=== PATIENT | female | born 1980 | race Caucasian/White ===

== ENCOUNTER 2017-11-30 08:47 | Emergency (ER) | payer OTHER ==
[~2017-11-30] VITALS: Ht 170.2 cm; Wt 105.2 kg
[2017-11-30 08:52] VITALS: Ht 170.2 cm; Wt 105.2 kg
[2017-11-30 11:17] VITALS: BP 112/77
== END 2017-11-30 11:17 | disposition home or self-care (01) ==
LOC: ED 08:47
DX: S83.91XA Sprain of unspecified site of right knee, initial encounter (principal); E11.9 Type 2 diabetes mellitus without complications; Z90.89 Acquired absence of other organs; X50.1XXA Overexertion from prolonged static or awkward postures, initial encounter; Y93.89 Activity, other specified; Y92.89 Other specified places as the place of occurrence of the external cause; Y99.8 Other external cause status

== ENCOUNTER 2017-12-06 18:20 | Emergency (ER) | payer OTHER ==
[~2017-12-06] VITALS: Ht 167.6 cm; Wt 104.3 kg
[2017-12-06 18:46] VITALS: Ht 167.6 cm; Wt 104.3 kg
[2017-12-06 22:00] VITALS: BP 128/95
== END 2017-12-06 22:00 | disposition home or self-care (01) ==
LOC: ED 18:20
DX: S86.811A Strain of other muscle(s) and tendon(s) at lower leg level, right leg, initial encounter (principal); E11.9 Type 2 diabetes mellitus without complications; Z90.89 Acquired absence of other organs; V00.121A Fall from non-in-line roller-skates, initial encounter; Y93.89 Activity, other specified; Y92.89 Other specified places as the place of occurrence of the external cause; Y99.8 Other external cause status
CPT/HCPCS: J1885

== ENCOUNTER 2018-05-26 17:33 | Emergency (ER) | payer SELFPAY ==
[~2018-05-26] VITALS: Ht 170.2 cm; Wt 105.2 kg
[2018-05-26 19:14] VITALS: Ht 170.2 cm; Wt 105.2 kg
[2018-05-26 21:51] VITALS: BP 134/90
== END 2018-05-26 21:51 | disposition home or self-care (01) ==
LOC: ED 17:33
DX: G89.29 Other chronic pain (principal); M25.561 Pain in right knee; E11.9 Type 2 diabetes mellitus without complications; Z90.49 Acquired absence of other specified parts of digestive tract; Z98.890 Other specified postprocedural states
CPT/HCPCS: J1885

== ENCOUNTER 2018-07-04 11:49 | Emergency (ER) | payer MEDICAID ==
[~2018-07-04] VITALS: Ht 170.2 cm; Wt 104.4 kg
[2018-07-04 11:56] VITALS: Ht 170.2 cm; Wt 104.4 kg
[2018-07-04 12:50] LABS: BASOPHIL % 0.5 % (0-2); PLATELET COUNT 235 x10^3mcL (130-400); RED CELL DISTRIBUTION WIDTH 13.1 % (11.5-14.5)
[2018-07-04 13:00] LABS: CALCIUM 8.6 mg/dL (8.5-10.1); CARBON DIOXIDE 25.9 mmol/L (21-32); CHLORIDE SERUM 102 mmol/L (98-107); CREATININE SERUM 0.7 mg/dL (0.6-1.0); GFR1 > 60 mL/min; GLUCOSE SERUM 325 mg/dL (74-106); POTASSIUM SERUM 3.8 mmol/L (3.5-5.1); SODIUM SERUM 137 mmol/L (136-145)
[2018-07-04 13:15] LABS: ALBUMIN 3.1 g/dL (3.4-5.0); ALKALINE PHOSPHATASE 148 U/L (46-116); ALT/SGPT 72 U/L (14-59); AST/SGOT 32 U/L (15-37); BILIRUBIN TOTAL 0.42 mg/dL (0.20-1.00); TOTAL PROTEIN, SERUM 7.3 g/dL (6.4-8.2)
[2018-07-04 16:36] VITALS: BP 142/72
== END 2018-07-04 16:36 | disposition home or self-care (01) ==
LOC: ED 11:49
PROVIDERS: Emergency Medicine
DX: E11.65 Type 2 diabetes mellitus with hyperglycemia (principal); E86.0 Dehydration; N39.0 Urinary tract infection, site not specified; I10 Essential (primary) hypertension; Z98.890 Other specified postprocedural states; Z90.49 Acquired absence of other specified parts of digestive tract
CPT/HCPCS: 82962; 85378; J0696; J7030

== ENCOUNTER 2018-07-21 18:13 | Emergency (ER) | payer MEDICAID ==
[~2018-07-21] VITALS: Ht 170.2 cm; Wt 104.8 kg
[2018-07-21 18:21] VITALS: Ht 170.2 cm; Wt 104.8 kg
[2018-07-21 19:49] LABS: BASOPHIL % 0.9 % (0-2); PLATELET COUNT 258 x10^3mcL (130-400); RED CELL DISTRIBUTION WIDTH 13.1 % (11.5-14.5)
[2018-07-21 19:59] LABS: CARBON DIOXIDE 24.6 mmol/L (21-32); CHLORIDE SERUM 97 mmol/L (98-107); CREATININE SERUM 0.8 mg/dL (0.6-1.0); GFR1 > 60 mL/min; GLUCOSE SERUM 290 mg/dL (74-106); POTASSIUM SERUM 3.5 mmol/L (3.5-5.1); SODIUM SERUM 132 mmol/L (136-145)
[2018-07-21 20:04] LABS: ALBUMIN 3.7 g/dL (3.4-5.0); ALKALINE PHOSPHATASE 171 U/L (46-116); ALT/SGPT 90 U/L (14-59); AST/SGOT 52 U/L (15-37); BILIRUBIN TOTAL 0.42 mg/dL (0.20-1.00); LIPASE 92 IU/L (73-393); TOTAL PROTEIN, SERUM 8.3 g/dL (6.4-8.2)
[2018-07-21 20:44] LABS: UA SPECIFIC GRAVITY 1.025 (1.005-1.035); microscopic required? YES; urine erythrocyte 3+ (NEGATIVE)
[2018-07-22 02:58] VITALS: BP 110/51
== END 2018-07-22 02:58 | disposition home or self-care (01) ==
LOC: ED 18:13
PROVIDERS: Emergency Medicine
DX: N39.0 Urinary tract infection, site not specified (principal); N83.201 Unspecified ovarian cyst, right side
CPT/HCPCS: J1885; J2270; J2405; J3010; J7030

== ENCOUNTER 2019-01-07 02:56 | Emergency (ER) | payer OTHER ==
[~2019-01-07] VITALS: Ht 170.2 cm; Wt 89.8 kg
[2019-01-07 03:01] VITALS: Ht 170.2 cm; Wt 89.8 kg
[2019-01-07 04:03] LABS: PLATELET COUNT 216 x10^3mcL (130-400); RED CELL DISTRIBUTION WIDTH 13.6 % (11.5-14.5)
[2019-01-07 04:04] LABS: CALCIUM 8.8 mg/dL (8.5-10.1); CARBON DIOXIDE 23.9 mmol/L (21-32); CHLORIDE SERUM 96 mmol/L (98-107); CREATININE SERUM 0.7 mg/dL (0.6-1.0); GFR1 > 60 mL/min; GLUCOSE SERUM 315 mg/dL (74-106); POTASSIUM SERUM 3.4 mmol/L (3.5-5.1); SODIUM SERUM 136 mmol/L (136-145)
[2019-01-07 04:08] LABS: ALKALINE PHOSPHATASE 154 U/L (46-116); ALT/SGPT 39 U/L (14-59); AST/SGOT 19 U/L (15-37); BASOPHIL % 0 % (0-2); BILIRUBIN TOTAL 0.42 mg/dL (0.20-1.00); LIPASE 94 IU/L (73-393); TOTAL PROTEIN, SERUM 7.6 g/dL (6.4-8.2)
[2019-01-07 04:09] LABS: ALBUMIN 3.2 g/dL (3.4-5.0)
[2019-01-07 06:50] VITALS: BP 109/65
[2019-01-07 07:41] LABS: UA SPECIFIC GRAVITY 1.015 (1.005-1.035); microscopic required? YES; urine erythrocyte 3+ (NEGATIVE)
== END 2019-01-07 06:50 | disposition home or self-care (01) ==
LOC: ED 02:56
PROVIDERS: Emergency Medicine
DX: N10 Acute pyelonephritis (principal); E11.65 Type 2 diabetes mellitus with hyperglycemia; I10 Essential (primary) hypertension; Z90.89 Acquired absence of other organs
CPT/HCPCS: 82962; J0696; J1885; J2405

== ENCOUNTER 2019-05-15 11:14 | Emergency (ER) | payer OTHER ==
[~2019-05-15] VITALS: Ht 170.2 cm; Wt 103.0 kg
[2019-05-15 11:22] VITALS: Ht 170.2 cm; Wt 103.0 kg
[2019-05-15 13:55] VITALS: BP 140/82
== END 2019-05-15 13:55 | disposition home or self-care (01) ==
LOC: ED 11:14
DX: R05 Cough (principal); I10 Essential (primary) hypertension; E11.9 Type 2 diabetes mellitus without complications; E66.9 Obesity, unspecified; Z98.890 Other specified postprocedural states; Z90.89 Acquired absence of other organs

== ENCOUNTER 2019-07-27 10:14 | Emergency (ER) | payer OTHER ==
[~2019-07-27] VITALS: Ht 170.2 cm; Wt 95.3 kg
[2019-07-27 10:18] VITALS: Ht 170.2 cm; Wt 95.3 kg
== END 2019-07-27 10:37 | disposition home or self-care (01) ==
LOC: ED 10:14
DX: B86 Scabies (principal); I10 Essential (primary) hypertension; E11.9 Type 2 diabetes mellitus without complications; Z90.49 Acquired absence of other specified parts of digestive tract

== ENCOUNTER 2019-09-25 21:31 | Emergency (ER) | payer OTHER ==
[~2019-09-25] VITALS: Ht 170.2 cm; Wt 109.3 kg
[2019-09-25 21:42] VITALS: BP 151/78; Ht 170.2 cm; Wt 109.3 kg
== END 2019-09-26 00:15 | disposition home or self-care (01) ==
LOC: ED 21:31
DX: L02.411 Cutaneous abscess of right axilla (principal)
CPT/HCPCS: J2001

== ENCOUNTER 2019-10-04 10:31 | Emergency (ER) | payer OTHER ==
[~2019-10-04] VITALS: Ht 170.2 cm; Wt 105.2 kg
[2019-10-04 10:53] VITALS: Ht 170.2 cm; Wt 105.2 kg
[2019-10-04 13:42] VITALS: BP 126/81
== END 2019-10-04 13:42 | disposition home or self-care (01) ==
LOC: ED 10:31
DX: L02.411 Cutaneous abscess of right axilla (principal)
CPT/HCPCS: J2001

== ENCOUNTER 2019-10-06 11:40 | Emergency (ER) | payer OTHER ==
[~2019-10-06] VITALS: Ht 170.2 cm; Wt 103.9 kg
[2019-10-06 12:48] VITALS: BP 129/95
== END 2019-10-06 12:48 | disposition home or self-care (01) ==
LOC: ED 11:40
DX: L02.411 Cutaneous abscess of right axilla (principal); I10 Essential (primary) hypertension; E11.9 Type 2 diabetes mellitus without complications

== ENCOUNTER 2019-12-26 09:59 | Emergency (ER) | payer OTHER, SELFPAY ==
[~2019-12-26] VITALS: Ht 170.2 cm; Wt 99.8 kg
[2019-12-26 10:01] VITALS: Ht 170.2 cm; Wt 99.8 kg
[2019-12-26 10:38] LABS: BASOPHIL % 0.6 % (0-2); PLATELET COUNT 230 x10^3mcL (130-400); RED CELL DISTRIBUTION WIDTH 13.6 % (11.5-14.5)
[2019-12-26 10:56] LABS: CALCIUM 9.2 mg/dL (8.5-10.1); CARBON DIOXIDE 26.1 mmol/L (21-32); CHLORIDE SERUM 97 mmol/L (98-107); CREATININE SERUM 0.8 mg/dL (0.6-1.0); GFR1 > 60 mL/min; GLUCOSE SERUM 428 mg/dL (74-106); SODIUM SERUM 131 mmol/L (136-145)
[2019-12-26 11:00] LABS: ALKALINE PHOSPHATASE 165 U/L (46-116); ALT/SGPT 83 U/L (14-59); AST/SGOT 51 U/L (15-37); BILIRUBIN TOTAL 0.4 mg/dL (0.20-1.00); TOTAL PROTEIN, SERUM 7.3 g/dL (6.4-8.2)
[2019-12-26 11:01] LABS: ALBUMIN 2.9 g/dL (3.4-5.0)
[2019-12-26 11:08] LABS: microscopic required? YES; urine erythrocyte 3+ (NEGATIVE)
[2019-12-26 14:16] VITALS: BP 118/67
== END 2019-12-26 14:16 | disposition home or self-care (01) ==
LOC: ED 09:59
PROVIDERS: Emergency Medicine
DX: N39.0 Urinary tract infection, site not specified (principal); E11.65 Type 2 diabetes mellitus with hyperglycemia; I10 Essential (primary) hypertension; E86.0 Dehydration; Z90.89 Acquired absence of other organs; Z20.828 Contact with and (suspected) exposure to other viral communicable diseases
CPT/HCPCS: 87804; J0696; J1885; J2405; J7030; J7060; Q0092; U0003-CS

== ENCOUNTER 2020-01-13 14:44 | Emergency (ER) | payer OTHER ==
[~2020-01-13] VITALS: Ht 170.2 cm; Wt 103.4 kg
[2020-01-13 14:48] VITALS: Ht 170.2 cm; Wt 103.4 kg
[2020-01-13 17:19] VITALS: BP 140/83
== END 2020-01-13 17:19 | disposition home or self-care (01) ==
LOC: ED 14:44
DX: J04.0 Acute laryngitis (principal); M94.0 Chondrocostal junction syndrome [Tietze]; I10 Essential (primary) hypertension; E11.9 Type 2 diabetes mellitus without complications; Z90.89 Acquired absence of other organs; Z98.51 Tubal ligation status
CPT/HCPCS: Q0092

== ENCOUNTER 2020-02-27 18:08 | Emergency (ER) | payer OTHER, SELFPAY ==
[~2020-02-27] VITALS: Ht 170.2 cm; Wt 105.7 kg
[2020-02-27 18:11] VITALS: Ht 170.2 cm; Wt 105.7 kg
[2020-02-27 19:09] VITALS: BP 131/73
== END 2020-02-27 19:09 | disposition home or self-care (01) ==
LOC: ED 18:08
DX: U07.1 COVID-19 (principal); I10 Essential (primary) hypertension; E11.9 Type 2 diabetes mellitus without complications; E78.00 Pure hypercholesterolemia, unspecified; Z90.89 Acquired absence of other organs
CPT/HCPCS: U0003

== ENCOUNTER 2020-03-01 20:25 | Emergency (ER) | payer OTHER, SELFPAY ==
[~2020-03-01] VITALS: Ht 170.2 cm; Wt 106.6 kg
[2020-03-01 20:27] VITALS: Ht 170.2 cm; Wt 106.6 kg
[2020-03-01 21:54] LABS: BASOPHIL % 0.4 % (0-2); PLATELET COUNT 199 x10^3mcL (130-400); RED CELL DISTRIBUTION WIDTH 12.9 % (11.5-14.5)
[2020-03-01 22:05] LABS: CALCIUM 8.8 mg/dL (8.5-10.1); CARBON DIOXIDE 24.1 mmol/L (21-32); CHLORIDE SERUM 98 mmol/L (98-107); CREATININE SERUM 0.8 mg/dL (0.6-1.0); GFR1 > 60 mL/min; GLUCOSE SERUM 424 mg/dL (74-106); POTASSIUM SERUM 3.8 mmol/L (3.5-5.1); SODIUM SERUM 134 mmol/L (136-145)
[2020-03-01 22:11] LABS: ALKALINE PHOSPHATASE 176 U/L (46-116); ALT/SGPT 81 U/L (14-59); AST/SGOT 26 U/L (15-37); BILIRUBIN TOTAL 0.3 mg/dL (0.20-1.00); CHOLESTEROL 165 mg/dL (<200); TOTAL PROTEIN, SERUM 7.3 g/dL (6.4-8.2)
[2020-03-01 22:20] LABS: ALBUMIN 3.2 g/dL (3.4-5.0); CHOLESTEROL/HDL RATIO 5.9; HDL CHOLESTEROL 28 mg/dL (40-60)
[2020-03-01 22:22] LABS: TRIGLYCERIDES 743 mg/dL (<150)
[2020-03-01 22:29] LABS: T3 TOTAL 1.34 ng/mL
[2020-03-01 22:33] LABS: FREE T4 1.24 ng/dL (0.76-1.46); FREE THYROXINE INDEX 3.3 ug/dL (1.4-4.5); T4(THYROXINE) 9.5 ug/dL (4.7-13.3)
[2020-03-01 23:48] VITALS: BP 136/75
== END 2020-03-01 23:48 | disposition home or self-care (01) ==
LOC: ED 20:25
PROVIDERS: Specialist
DX: U07.1 COVID-19 (principal); I10 Essential (primary) hypertension; E11.9 Type 2 diabetes mellitus without complications; Z90.49 Acquired absence of other specified parts of digestive tract; Z98.890 Other specified postprocedural states
CPT/HCPCS: 82962; 83880; 84439